=== PATIENT | female | born 1995 | race Hispanic/Latino ===

== ENCOUNTER 2020-05-02 23:24 | Emergency (ER) | payer OTHER ==
[2020-05-02] MEDS ORDERED: DEXAMETHASONE SOD PHOSPHATE 10MG/ML 1ML VIAL ONE (23:48)
[2020-05-03] MEDS ORDERED: KETOROLAC 15MG/ML VIAL (15MG/ML) ONE (00:33)
[2020-05-03] MEDS ORDERED: CYCLOBENZAPRINE HCL 10 MG TABLET ONE (01:31)
== END 2020-05-03 02:14 | disposition home or self-care (01) ==
LOC: EDH 23:24
DX: S33.5XXA Sprain of ligaments of lumbar spine, initial encounter (principal); X58.XXXA Exposure to other specified factors, initial encounter; Y93.89 Activity, other specified; Y92.89 Other specified places as the place of occurrence of the external cause; Y99.8 Other external cause status
CPT/HCPCS: 72100; 81025; 96374; 96375; 99284; J1100; J1885